=== PATIENT | female | born 1940 | race Caucasian/White ===

== ENCOUNTER 2024-07-04 16:52 | Emergency (ER) | payer OTHER ==
[2024-07-04 17:25] VITALS: BP 119/63; PULSE 98; RESP 18; TEMP 99.6; BMI 20.3
[2024-07-04] MEDS ORDERED: ACETAMINOPHEN INJECTION 100 ML ONE (18:56)
[2024-07-04 20:19] LABS: EOS % 1.1 % (0-4.5); HEMATOCRIT 32.1 % (32.4-45.2); HEMOGLOBIN 10.7 GM/dL (10.7-15.3); LYMPH % 26.6 % (8-40); MCH 35.7 pg (25.7-33.7); MCHC 33.3 g/dl (32.0-36.0); MEAN CELL VOLUME 107.1 fl (80-96); NEUT % 52.3 % (42.8-82.8); PLATELET COUNT 202 10^3/uL (134-434); RDW 19.3 % (11.6-15.6); WHITE BLOOD COUNT 3.3 K/mm3 (4.0-10.0)
[2024-07-04 20:36] LABS: POTASSIUM 3.7 mmol/L (3.5-5.1)
[2024-07-04 20:43] LABS: ALBUMIN 3.2 g/dl (3.4-5.0); BLOOD UREA NITROGEN 16.2 mg/dL (7-18); CALCIUM 8.9 mg/dL (8.5-10.1)
[2024-07-04 20:44] LABS: CREATININE 0.7 mg/dL (0.55-1.3)
[2024-07-04 20:46] LABS: BILIRUBIN,TOTAL 0.4 mg/dL (0.2-1); TOT PROT 6.8 g/dl (6.4-8.2)
[2024-07-04] MEDS: SODIUM CHLORIDE 0.9% 1000 ML INFUS.BAG IV ONE (20:51)
[2024-07-04] MEDS: ACETAMINOPHEN 1000 MG/100 ML BAG IVPB ONE (20:51)
[2024-07-04 21:13] LABS: ANISOCYTOSIS 1+; MACROCYTOSIS 2+
[2024-07-04 21:53] LABS: PH,URINE 5.5 (5.0-8.0); URINE APPEARANCE CLEAR; URINE BILIRUBIN NEGATIVE (NEGATIVE); URINE COLOR YELLOW; URINE GLUCOSE (UA) NEGATIVE (NEGATIVE); URINE KETONE NEGATIVE (NEGATIVE); URINE LEUK ESTERASE NEGATIVE (NEGATIVE); URINE NITRITE NEGATIVE (NEGATIVE); URINE PROTEIN NEGATIVE (NEGATIVE); URINE UROBILINOGEN 0.2 mg/dL (0.2-1.0)
== END 2024-07-04 22:21 | disposition home or self-care (01) ==
LOC: JER 16:52
PROC: 3E033NZ Introduction of Analgesics, Hypnotics, Sedatives into Peripheral Vein, Percutaneous Approach (ICD-10-PCS; principal; 2024-07-04)
DX: U07.1 COVID-19 (principal); R50.9 Fever, unspecified; R05.9 Cough, unspecified; R09.89 Other specified symptoms and signs involving the circulatory and respiratory systems; R10.2 Pelvic and perineal pain
CPT/HCPCS: 0241U-QW; 36415; 71045-TC-FY; 80053; 81003; 83605; 83690; 84484; 85025; 87040; 87086; 87186; 93005; 93010; 96374; 99285-25; J0131

== ENCOUNTER 2024-07-29 08:13 | Day surgery (SDC) | payer OTHER ==
[2024-07-29 08:39] LABS: BASO % 0.7 % (0-2.0); EOS % 5.5 % (0-4.5); HEMOGLOBIN 10.6 GM/dL (10.7-15.3); LYMPH % 15.5 % (8-40); MCHC 34.1 g/dl (32.0-36.0); MEAN CELL VOLUME 108.2 fl (80-96); MEAN PLT VOLUME 7.9 fl (7.5-11.1); MONO % 13.6 % (3.8-10.2); NEUT % 64.7 % (42.8-82.8); PLATELET COUNT 283 10^3/uL (134-434); RBC 2.86 M/mm3 (3.60-5.2); RDW 17.9 % (11.6-15.6); WHITE BLOOD COUNT 4.5 K/mm3 (4.0-10.0)
[2024-07-29 09:12] LABS: POTASSIUM 3.8 mmol/L (3.5-5.1)
[2024-07-29 09:14] LABS: CALCIUM 8.7 mg/dL (8.5-10.1)
[2024-07-29 09:15] LABS: ALBUMIN 3.2 g/dl (3.4-5.0); BLOOD UREA NITROGEN 12.5 mg/dL (7-18)
[2024-07-29 09:17] LABS: BILIRUBIN,DIRECT 0.2 mg/dL (0.0-0.2)
[2024-07-29 09:18] LABS: CREATININE 0.7 mg/dL (0.55-1.3)
[2024-07-29 09:19] LABS: BILIRUBIN,TOTAL 0.5 mg/dL (0.2-1); TOT PROT 6.5 g/dl (6.4-8.2)
[2024-07-29 09:31] LABS: ANISOCYTOSIS 0; MACROCYTOSIS 2+
[2024-07-29] MEDS: SODIUM CHLORIDE 250 ML IV ONE (10:09)
[2024-07-29] MEDS: DEXTROSE 5% IVPB ONE (10:45)
[2024-07-29] MEDS: GRANISETRON HCL IVPB ONE (10:45)
[2024-07-29] MEDS: DEXAMETHASONE IVPB ONE (10:45)
[2024-07-29] MEDS: WATER IVPB ONE (10:45)
[2024-07-29] MEDS: PACLITAXEL PROTEIN BOUND IVPB ONE (11:48)
[2024-07-29] MEDS: SODIUM CHLORIDE IVPB ONE (11:48)
[2024-07-29] MEDS: GEMCITABINE HCL IV ONE (12:30)
[2024-07-29] MEDS: SODIUM CHLORIDE IV ONE (12:30)
[2024-07-29 15:03] VITALS: BP 124/73; PULSE 82; RESP 20; TEMP 97.4
== END 2024-07-29 14:20 | disposition home or self-care (01) ==
LOC: JONCCHEMO 08:13
PROVIDERS: ATTEND Internal Medicine Hematology & Oncology
DX: Z51.11 Encounter for antineoplastic chemotherapy (principal); C25.9 Malignant neoplasm of pancreas, unspecified
CPT/HCPCS: 36415; 80048; 80076; 85025; 96367; 96411; 96413; J1100; J9264

== ENCOUNTER 2024-08-12 08:12 | Day surgery (SDC) | payer OTHER ==
[2024-08-12 08:51] LABS: HEMATOCRIT 28.3 % (32.4-45.2); HEMOGLOBIN 9.4 GM/dL (10.7-15.3); MCH 36.2 pg (25.7-33.7); MCHC 33.3 g/dl (32.0-36.0); MEAN CELL VOLUME 108.8 fl (80-96); MEAN PLT VOLUME 7.7 fl (7.5-11.1); PLATELET COUNT 337 10^3/uL (134-434); RBC 2.61 M/mm3 (3.60-5.2); RDW 17.3 % (11.6-15.6); WHITE BLOOD COUNT 3.2 K/mm3 (4.0-10.0)
[2024-08-12] MEDS: SODIUM CHLORIDE 250 ML IV ONE (09:08)
[2024-08-12 09:10] LABS: CHLORIDE 107 mmol/L (98-107); SODIUM 140 mmol/L (136-145)
[2024-08-12 09:12] LABS: CALCIUM 8.7 mg/dL (8.5-10.1)
[2024-08-12 09:13] LABS: ALBUMIN 2.9 g/dl (3.4-5.0); ANION GAP 5 mmol/L (4-13); BLOOD UREA NITROGEN 10.5 mg/dL (7-18); CO2 28 mmol/L (21-32); GLUCOSE,RANDOM 114 mg/dL (74-106)
[2024-08-12 09:15] LABS: BILIRUBIN,DIRECT 0.2 mg/dL (0.0-0.2)
[2024-08-12 09:16] LABS: CREATININE 0.7 mg/dL (0.55-1.3); SGOT/AST 90 U/L (15-37); SGPT/ALT 87 U/L (13-61)
[2024-08-12 09:18] LABS: BILIRUBIN,TOTAL 0.5 mg/dL (0.2-1); TOT PROT 6.2 g/dl (6.4-8.2)
[2024-08-12 09:19] LABS: ALK PHOS 418 U/L (45-117)
[2024-08-12 09:23] LABS: ANISOCYTOSIS 1+; MACROCYTOSIS 2+
[2024-08-12] MEDS: DEXAMETHASONE IVPB ONE (11:08)
[2024-08-12] MEDS: GRANISETRON HCL IVPB ONE (11:08)
[2024-08-12] MEDS: SODIUM CHLORIDE IVPB ONE ×2 (11:08→11:55)
[2024-08-12 11:35] VITALS: RESP 20; TEMP 98.4
[2024-08-12] MEDS: PACLITAXEL PROTEIN BOUND IVPB ONE (11:55)
[2024-08-12] MEDS: SODIUM CHLORIDE IV ONE (12:45)
[2024-08-12] MEDS: GEMCITABINE HCL IV ONE (12:45)
[2024-08-12 17:46] VITALS: BP 115/64; PULSE 99
== END 2024-08-12 14:00 | disposition home or self-care (01) ==
LOC: JONCCHEMO 08:12 → J7W 08:13 → JONCCHEMO 14:00
PROVIDERS: ATTEND Internal Medicine Hematology & Oncology
DX: Z51.11 Encounter for antineoplastic chemotherapy (principal); C25.9 Malignant neoplasm of pancreas, unspecified; C50.412 Malignant neoplasm of upper-outer quadrant of left female breast
CPT/HCPCS: 36415; 80048; 80076; 85025; 96367; 96413; 96417; J1100; J9264

== ENCOUNTER 2024-08-22 13:18 | Emergency (ER) | payer OTHER ==
[2024-08-22 14:19] VITALS: BP 140/68; PULSE 89; RESP 18; TEMP 98.2; BMI 19.8
[2024-08-22] MEDS ORDERED: LIDOCAINE 4% PATCH TP ONE (16:50)
[2024-08-22] MEDS: LIDOCAINE 4% PATCH TP ONE (16:58)
[2024-08-22] MEDS ORDERED: LIDOCAINE PATCH REMOVAL MC SCH (22:00)
== END 2024-08-22 17:57 | disposition home or self-care (01) ==
LOC: JER 13:18
DX: M54.50 Low back pain, unspecified (principal)
CPT/HCPCS: 72100-TC-FY; 99283-25

== ENCOUNTER 2024-08-26 08:31 | Day surgery (SDC) | payer OTHER ==
[2024-08-26 08:40] LABS: EOS % 2.1 % (0-4.5); HEMATOCRIT 31.4 % (32.4-45.2); HEMOGLOBIN 10.4 GM/dL (10.7-15.3); LYMPH % 11.4 % (8-40); MCH 35.1 pg (25.7-33.7); MCHC 33.1 g/dl (32.0-36.0); MEAN CELL VOLUME 106.1 fl (80-96); MONO % 14.8 % (3.8-10.2); NEUT % 70.7 % (42.8-82.8); PLATELET COUNT 343 10^3/uL (134-434); RBC 2.96 M/mm3 (3.60-5.2); RDW 17.3 % (11.6-15.6); WHITE BLOOD COUNT 5.3 K/mm3 (4.0-10.0)
[2024-08-26 09:03] LABS: CHLORIDE 105 mmol/L (98-107); POTASSIUM 4.1 mmol/L (3.5-5.1); SODIUM 139 mmol/L (136-145)
[2024-08-26 09:04] LABS: ANION GAP 7 mmol/L (4-13); BLOOD UREA NITROGEN 16.6 mg/dL (7-18); CALCIUM 9.1 mg/dL (8.5-10.1); CO2 27 mmol/L (21-32)
[2024-08-26 09:05] LABS: GLUCOSE,RANDOM 100 mg/dL (74-106)
[2024-08-26 09:07] LABS: BILIRUBIN,DIRECT 0.3 mg/dL (0.0-0.2); CREATININE 0.8 mg/dL (0.55-1.3); SGOT/AST 170 U/L (15-37); SGPT/ALT 167 U/L (13-61)
[2024-08-26 09:09] LABS: BILIRUBIN,TOTAL 0.6 mg/dL (0.2-1); TOT PROT 6.5 g/dl (6.4-8.2)
[2024-08-26 09:12] LABS: ALK PHOS 666 U/L (45-117)
[2024-08-26 10:08] LABS: ANISOCYTOSIS 1+; MACROCYTOSIS 2+
[2024-08-26] MEDS: SODIUM CHLORIDE 250 ML IV ONE (10:23)
[2024-08-26] MEDS: DEXAMETHASONE SODIUM PHOSPHATE 10 MG in SODIUM CHLORIDE 50 ML IVPB ONE (10:55)
[2024-08-26] MEDS: GRANISETRON HCL 1 MG in SODIUM CHLORIDE 50 ML IVPB ONE (11:35)
[2024-08-26] MEDS: PACLITAXEL PROTEIN BOUND IVPB ONE (12:00)
[2024-08-26] MEDS: SODIUM CHLORIDE IVPB ONE (12:00)
[2024-08-26] MEDS: SODIUM CHLORIDE IV ONE (12:33)
[2024-08-26] MEDS: GEMCITABINE HCL IV ONE (12:33)
[2024-08-26 16:21] VITALS: BP 151/69; PULSE 120; RESP 20; TEMP 98.3
== END 2024-08-26 13:50 | disposition home or self-care (01) ==
LOC: JONCCHEMO 08:31 → J7W 08:32 → JONCCHEMO 13:50
PROVIDERS: ATTEND Internal Medicine Hematology & Oncology
DX: Z51.11 Encounter for antineoplastic chemotherapy (principal); C25.9 Malignant neoplasm of pancreas, unspecified
CPT/HCPCS: 36415; 80048; 80076; 85025; 96367; 96413; 96417; J9264

== ENCOUNTER 2024-09-09 08:01 | Day surgery (SDC) | payer OTHER ==
[2024-09-09 08:56] LABS: HEMATOCRIT 29.4 % (32.4-45.2); HEMOGLOBIN 9.6 GM/dL (10.7-15.3); MCH 35.4 pg (25.7-33.7); MCHC 32.8 g/dl (32.0-36.0); MEAN CELL VOLUME 107.8 fl (80-96); MEAN PLT VOLUME 8.2 fl (7.5-11.1); PLATELET COUNT 335 10^3/uL (134-434); RBC 2.72 M/mm3 (3.60-5.2); RDW 16.8 % (11.6-15.6)
[2024-09-09 08:57] LABS: CHLORIDE 104 mmol/L (98-107); SODIUM 139 mmol/L (136-145)
[2024-09-09 09:00] LABS: CALCIUM 8.9 mg/dL (8.5-10.1)
[2024-09-09 09:01] LABS: ALBUMIN 2.8 g/dl (3.4-5.0); ANION GAP 6 mmol/L (4-13); BLOOD UREA NITROGEN 11.4 mg/dL (7-18); CO2 28 mmol/L (21-32); GLUCOSE,RANDOM 105 mg/dL (74-106)
[2024-09-09 09:03] LABS: BILIRUBIN,DIRECT 0.4 mg/dL (0.0-0.2)
[2024-09-09 09:04] LABS: CREATININE 0.6 mg/dL (0.55-1.3); SGOT/AST 130 U/L (15-37); SGPT/ALT 161 U/L (13-61)
[2024-09-09 09:06] LABS: TOT PROT 6.1 g/dl (6.4-8.2)
[2024-09-09 09:14] LABS: BILIRUBIN,TOTAL 0.8 mg/dL (0.2-1)
[2024-09-09 09:16] LABS: ALK PHOS 477 U/L (45-117)
[2024-09-09] MEDS: SODIUM CHLORIDE 250 ML IV ONE (09:26)
[2024-09-09 10:09] LABS: ANISOCYTOSIS 1+; MACROCYTOSIS 1+
[2024-09-09] MEDS: DEXAMETHASONE SODIUM PHOSPHATE 10 MG in SODIUM CHLORIDE 50 ML IVPB ONE (10:50)
[2024-09-09] MEDS: GRANISETRON HCL 1 MG in SODIUM CHLORIDE 50 ML IVPB ONE (11:14)
[2024-09-09] MEDS: SODIUM CHLORIDE IVPB ONE (11:39)
[2024-09-09] MEDS: PACLITAXEL PROTEIN BOUND IVPB ONE (11:39)
[2024-09-09] MEDS: SODIUM CHLORIDE IV ONE (12:35)
[2024-09-09] MEDS: GEMCITABINE HCL IV ONE (12:35)
[2024-09-09 15:00] VITALS: BP 135/76; PULSE 123; RESP 20; TEMP 98
== END 2024-09-09 13:40 | disposition home or self-care (01) ==
LOC: JONCCHEMO 08:01 → J7W 08:02 → JONCCHEMO 13:40
PROVIDERS: ATTEND Internal Medicine Hematology & Oncology
DX: Z51.11 Encounter for antineoplastic chemotherapy (principal); C25.9 Malignant neoplasm of pancreas, unspecified
CPT/HCPCS: 36415; 80048; 80076; 85027; 96367; 96413; 96417; J9264

== ENCOUNTER 2024-09-23 08:32 | Day surgery (SDC) | payer OTHER ==
[2024-09-23 08:55] LABS: BASO % 0.9 % (0-2.0); EOS % 1.9 % (0-4.5); HEMATOCRIT 29.6 % (32.4-45.2); HEMOGLOBIN 9.8 GM/dL (10.7-15.3); LYMPH % 9.2 % (8-40); MCH 34.7 pg (25.7-33.7); MEAN CELL VOLUME 105.1 fl (80-96); MEAN PLT VOLUME 7.9 fl (7.5-11.1); MONO % 14.7 % (3.8-10.2); NEUT % 73.3 % (42.8-82.8); PLATELET COUNT 433 10^3/uL (134-434); RBC 2.82 M/mm3 (3.60-5.2); RDW 16.4 % (11.6-15.6); WHITE BLOOD COUNT 7.1 K/mm3 (4.0-10.0)
[2024-09-23 09:20] LABS: CHLORIDE 104 mmol/L (98-107); POTASSIUM 3.6 mmol/L (3.5-5.1); SODIUM 139 mmol/L (136-145)
[2024-09-23 09:22] LABS: CALCIUM 8.6 mg/dL (8.5-10.1)
[2024-09-23 09:23] LABS: ALBUMIN 2.5 g/dl (3.4-5.0); ANION GAP 7 mmol/L (4-13); BLOOD UREA NITROGEN 13.2 mg/dL (7-18); CO2 29 mmol/L (21-32); GLUCOSE,RANDOM 107 mg/dL (74-106)
[2024-09-23 09:25] LABS: BILIRUBIN,DIRECT 0.6 mg/dL (0.0-0.2)
[2024-09-23 09:26] LABS: CREATININE 0.7 mg/dL (0.55-1.3); SGOT/AST 47 U/L (15-37); SGPT/ALT 91 U/L (13-61)
[2024-09-23 09:27] LABS: BILIRUBIN,TOTAL 0.9 mg/dL (0.2-1)
[2024-09-23 09:28] LABS: TOT PROT 5.7 g/dl (6.4-8.2)
[2024-09-23 09:33] LABS: ALK PHOS 684 U/L (45-117)
[2024-09-23] MEDS: DEXAMETHASONE SODIUM PHOSPHATE 10 MG in SODIUM CHLORIDE 50 ML IVPB ONE (09:42)
[2024-09-23 09:44] LABS: ANISOCYTOSIS 1+; MACROCYTOSIS 2+
[2024-09-23] MEDS: SODIUM CHLORIDE 250 ML IV ONE (09:46)
[2024-09-23] MEDS: GRANISETRON HCL 1 MG in SODIUM CHLORIDE 50 ML IVPB ONE (10:01)
[2024-09-23] MEDS: SODIUM CHLORIDE IVPB ONE (10:52)
[2024-09-23] MEDS: PACLITAXEL PROTEIN BOUND IVPB ONE (10:52)
[2024-09-23] MEDS: GEMCITABINE HCL IV ONE (11:34)
[2024-09-23] MEDS: SODIUM CHLORIDE IV ONE (11:34)
[2024-09-23 12:47] VITALS: RESP 16; TEMP 97.8
[2024-09-23 12:56] VITALS: BP 126/72; PULSE 104
== END 2024-09-23 12:20 | disposition home or self-care (01) ==
LOC: JONCCHEMO 08:32 → J7W 08:33 → JONCCHEMO 12:20
PROVIDERS: ATTEND Internal Medicine Hematology & Oncology
DX: Z51.11 Encounter for antineoplastic chemotherapy (principal); C25.9 Malignant neoplasm of pancreas, unspecified
CPT/HCPCS: 36415; 80048; 80076; 85025; 96375; 96413; 96417; J9264

== ENCOUNTER 2024-10-20 11:15 | Inpatient (IN) | payer OTHER ==
[2024-10-20] MEDS ORDERED: CEFEPIME HCL/D5W 2 GM/50 ML BAG IVPB ONE (11:50)
[2024-10-20] MEDS ORDERED: VANCOMYCIN 1 GM PREMIX (F) 1 GM/200 ML BAG ONE (11:51)
[2024-10-20 12:28] LABS: URINE APPEARANCE TURBID; URINE BILIRUBIN 3+ (NEGATIVE); URINE COLOR DK YELLOW; URINE GLUCOSE (UA) NEGATIVE (NEGATIVE); URINE KETONE NEGATIVE (NEGATIVE); URINE LEUK ESTERASE TRACE (NEGATIVE); URINE NITRITE POSITIVE (NEGATIVE); URINE PROTEIN 1+ (NEGATIVE)
[2024-10-20 12:43] VITALS: BMI 20.5
[2024-10-20 12:51] LABS: EPI CELLS 133.7 /uL (0-25.1); HYALINE CASTS 43.89 /uL (0-3.1); URINE BACTERIA 22.6 /uL (0-1359); URINE RBC 18.1 /uL (0-23.9); URINE WBC 133.4 /uL (0-25.8)
[2024-10-20 12:52] LABS: URINE CRYSTALS PRESENT /hpf
[2024-10-20] MEDS: CEFEPIME HCL 2 GM VIAL (RESTRICTED TO ID) IVPB ONE (14:00)
[2024-10-20 14:26] LABS: VENOUS BASE EXCESS 0.6 mmol/L (-2-2); VENOUS O2 SATURATION 58.4 % (70-80); VENOUS PCO2 40.2 mmHg (38-52); VENOUS PH 7.415 (7.310-7.410)
[2024-10-20 14:27] LABS: HEMATOCRIT 29.3 % (32.4-45.2); HEMOGLOBIN 9.2 GM/dL (10.7-15.3); MCH 33.1 pg (25.7-33.7); MCHC 31.5 g/dl (32.0-36.0); MEAN CELL VOLUME 105.2 fl (80-96); MEAN PLT VOLUME 10.1 fl (7.5-11.1); PLATELET COUNT 375 10^3/uL (134-434); RBC 2.79 M/mm3 (3.60-5.2); RDW 19.2 % (11.6-15.6)
[2024-10-20 14:40] LABS: ACTIVATED PTT 30.6 SECONDS (25.2-36.5); INR 1.94 (0.83-1.09); PROTHROMBIN TIME (PATIENT) 21.5 SEC (9.7-13.0)
[2024-10-20 15:23] LABS: ANISOCYTOSIS 2+; MACROCYTOSIS 2+; OVALOCYTE 1+
[2024-10-20 15:27] LABS: POTASSIUM 4.8 mmol/L (3.5-5.1)
[2024-10-20 15:30] LABS: ALBUMIN 1.7 g/dl (3.4-5.0)
[2024-10-20] MEDS: SODIUM CHLORIDE 0.9% 500 ML INFUS.BAG IV ONE ×2 (15:30→20:12)
[2024-10-20 15:31] LABS: BLOOD UREA NITROGEN 34.8 mg/dL (7-18)
[2024-10-20 15:34] LABS: CREATININE 1.7 mg/dL (0.55-1.3)
[2024-10-20 15:35] LABS: TOT PROT 5.7 g/dl (6.4-8.2)
[2024-10-20] MEDS: VANCOMYCIN 1,000 MG in DEXTROSE 5%-WATER - 250 ML IVPB ONE (16:00)
[2024-10-20 16:03] VITALS: RESP 158
[2024-10-20 21:35] VITALS: BP 92/55; PULSE 102; TEMP 97.1
[2024-10-20] MEDS ORDERED: MEROPENEM-0.9% SODIUM CHLORIDE 1 GM/50 ML BAG IVPB ONE (21:43)
[2024-10-20] MEDS ORDERED: MEROPENEM 1 GM VIAL (RESTRICTED TO ID) IVPB ONE (21:45)
[2024-10-20 21:53] LABS: BILIRUBIN,DIRECT 3.3 mg/dL (0.0-0.2)
[2024-10-20 22:20] LABS: HEMOGLOBIN 8.5 GM/dL (10.7-15.3); MCH 33.9 pg (25.7-33.7); MCHC 32.7 g/dl (32.0-36.0); MEAN CELL VOLUME 103.5 fl (80-96); MEAN PLT VOLUME 8.8 fl (7.5-11.1); PLATELET COUNT 297 10^3/uL (134-434); RBC 2.51 M/mm3 (3.60-5.2); RDW 19.2 % (11.6-15.6); WHITE BLOOD COUNT 9.1 K/mm3 (4.0-10.0)
[2024-10-20] MEDS ORDERED: NOREPINEPHRINE BITARTRATE 4 MG/4 ML ML IV ONE (22:40)
[2024-10-20 23:02] LABS: ANISOCYTOSIS 1+; MACROCYTOSIS 0; TARGET CELLS 2+; TEAR DROP CELLS 1+
[2024-10-20] MEDS: NOREPINEPHRINE BITARTRATE 4,000 MCG in DEXTROSE 5%-WATER - 496 ML IV SCH (23:04)
[2024-10-20] MEDS: MEROPENEM 2 GM in SODIUM CHLORIDE 100 ML IVPB ONE (23:04)
[2024-10-20 23:07] LABS: INR 1.85 (0.83-1.09); PROTHROMBIN TIME (PATIENT) 20.5 SEC (9.7-13.0)
[2024-10-20 23:10] LABS: ACTIVATED PTT 29.4 SECONDS (25.2-36.5)
== END 2024-10-21 00:33 | disposition short-term general hospital (02) | DRG 871 ==
LOC: JER 11:15 → JERBED 17:55
PROVIDERS: ADMIT Internal Medicine; ATTEND Internal Medicine
DX: A41.9 Sepsis, unspecified organism (principal); K83.1 Obstruction of bile duct; R65.21 Severe sepsis with septic shock; N17.9 Acute kidney failure, unspecified; C25.9 Malignant neoplasm of pancreas, unspecified; N39.0 Urinary tract infection, site not specified; C78.7 Secondary malignant neoplasm of liver and intrahepatic bile duct; K83.09 Other cholangitis; I10 Essential (primary) hypertension; I48.91 Unspecified atrial fibrillation; D53.9 Nutritional anemia, unspecified
CPT/HCPCS: 0241U-QW; 36415; 71045-TC-FY; 76705-TC; 80053; 81003; 82248; 82803; 83605; 83880; 84484; 85025; 85610; 85730; 86850; 86900; 86901; 87040; 87086; 93005; 93010; 99285-25